=== PATIENT | female | born 1965 | race Caucasian/White ===

== ENCOUNTER 2019-01-06 07:29 | Emergency (ER) | payer OTHER ==
[~2019-01-06] VITALS: Ht 165.1 cm; Wt 61.2 kg
[2019-01-06 07:45] VITALS: BP 123/84
[2019-01-06 09:57] LABS: URINE BILIRUBIN NEGATIVE (Negative); URINE BLOOD 3+ (Negative); URINE CLARITY CLEAR; URINE COLOR YELLOW; URINE GLUCOSE-RANDOM* NEGATIVE (Negative); URINE KETONES NEGATIVE (Negative); URINE LEUKOCYTES-REFLEX TRACE (Negative); URINE NITRITE-REFLEX NEGATIVE (Negative); URINE PROTEIN (DIPSTICK) 2+ (Negative); URINE SPECIFIC GRAVITY <= 1.005 (1.005-1.035); URINE UROBILINOGEN 0.2 E.U./dl (0.2-1.0)
[2019-01-06 10:05] LABS: BACTERIA-REFLEX None Seen /HPF (None Seen); CASTS None Seen /LPF (None Seen); CRYSTALS None Seen /LPF (None Seen); SQUAMOUS >10 Many /LPF (0-3); URINE RBC >20 Many /HPF (0-2); URINE WBC-REFLEX 0-5 Rare /HPF (0-5)
[2019-01-06 11:26] LABS: HEMOGLOBIN 14.1 gm/dL (12.0-15.0); MCH 27.9 pg (26.0-34.0); MCHC 32.9 g/dL (28.0-37.0); MCV 84.9 fL (80.0-100.0); RBC 5.06 mil/uL (4.20-5.00); RDW 14.6 % (10.5-14.5); WBC 12.2 thou/uL (4.0-11.0)
[2019-01-06 11:31] LABS: CALCIUM 8.8 mg/dL (8.5-10.1); CREATININE 0.7 mg/dL (0.6-1.0); POTASSIUM 3.8 mmol/L (3.5-5.1)
[2019-01-06 11:35] LABS: APTT 29.7 Seconds (24.5-32.8); PROTIME 10.2 Seconds (9.3-11.4)
== END 2019-01-06 12:24 | disposition home or self-care (01) ==
LOC: ER 07:29
PROVIDERS: Emergency Medicine
DX: D25.9 Leiomyoma of uterus, unspecified (principal); F17.210 Nicotine dependence, cigarettes, uncomplicated; Z88.1 Allergy status to other antibiotic agents